=== PATIENT | female | born 1985 | race Two or more races ===

== ENCOUNTER 2021-10-01 16:19 | Emergency (ER) | payer OTHER ==
[2021-10-01 16:54] VITALS: BP 120/75; PULSE 76; TEMP 98.7; BMI 26.4
== END 2021-10-01 18:20 | disposition home or self-care (01) ==
LOC: JERFT 16:19 → JER 16:19 → JERFT 18:20
DX: K11.20 Sialoadenitis, unspecified (principal)
CPT/HCPCS: 99283-25